=== PATIENT | male | born 1985 | race African-American/Black ===

== ENCOUNTER 2024-09-17 10:29 | Outpatient (CLI) | payer OTHER, SELFPAY ==
--- NOTE | ~2024-09-17 | US_ITS ---
EXAMINATION: US venous doppler LE RT DATE: 09/17/2024 11:14 INDICATION: Right lower limb pain and swelling TECHNIQUE: Grayscale ultrasound images without and with compression and Doppler ultrasound images of the right lower extremity veins were obtained. COMPARISON: None. FINDINGS: The visualized portions of right common femoral vein, profunda (deep) femoral vein, femoral vein, pop liteal vein, peroneal trunk, posterior tibial veins, peroneal veins, gastrocnemius vein and greater s aphenous vein outflow are patent. 4.0 x 1.1 x 2.4 cm anechoic Melara's cyst at the popliteal fossa whi ch rotation of the maintainer central office is also in the region of the patient's pain. IMPRESSION: 1. No deep venous thrombosis in the right lower limb. 2. Small to moderate-sized right popliteal fossa Melara's cyst at the site of patient's pain. Reviewed, dictated and finalized at location B. IMPRESSION: 1. No deep venous thrombosis in the right lower limb. 2. Small to moderate-sized right popliteal fossa Melara's cyst at the site of pa tient's pain.
--- NOTE | ~2024-09-17 | XR_ITS ---
EXAMINATION: XR femur RT min 2V, XR knee RT min 4V DATE: 09/17/2024 11:24 INDICATION: Right knee pain with weightbearing post injury TECHNIQUE: 1. AP, left and right oblique and lateral views of the right knee were obtained. 2. AP and lateral views of the right femur were obtained on overlapping proximal and distal images. COMPARISON: None. FINDINGS: Bone alignment is normal. No fracture. Right hip and knee joint spaces are normal. Suggestion of a sm all to moderate-sized right knee joint effusion. Soft tissues are otherwise unremarkable. IMPRESSION: 1. Likely small to moderate-sized right knee joint effusion. No osseous abnormality. Reviewed, dictated and finalized at location B. IMPRESSION: 1. Likely small to moderate-sized right knee joint effusion. No osseous abnorma lity.
--- OUTSIDE RECORDS SUMMARY | 2024-09-17 12:10 | XMS_ITS | Clinical Summary ---
Author Organization [facility] Address [address] [place] [id number] Care Team Providers Care Pad Tufter Name Role Phone None, Provider Primary Care Provider Unavaila ble Allergies No known active allergies Encounters Date Type Department Care Team Description 09/10/2024 8:17 AM CDT - 09/10/2024 8:26 AM CDT Emergency [facility] [place] [address] Emilia Tovar PA Knee Swelling Discharge Disposition: Home or Self Care (Routine Discharge) 09/10/2024 Travel from Last 3 Months Social History Tobacco Use Types Packs/Day Years Used Date Smoking Tobacco: Unknown Tobacco Cessation:Counseling Given: Not Answered Sex and Gender Information Value Date Recorded Sex Assigned at Male 09/10/2024 7:59 AM CDT Legal Sex Male 7:37 PM CDT Gender Identity Not on file Sexual Orientation Not on file Last Filed Vital Signs Vital Sign Reading Time Taken Comments Blood Pressure 125/77 09/10/2024 8:02 AM CDT Pulse 59 09/10/2024 8:02 AM CDT Temperature 36.3 C (97.4 F) 09/10/2024 8:02 AM CDT Respiratory Rate 20 09/10/2024 8:02 AM CDT Oxygen Saturation 97% 09/10/2024 8:02 AM CDT Inhaled Oxygen Concentration - - Weight 83.6 kg (184 lb 4.9 oz) 09/10/2024 8:02 A M CDT Height 177.8 cm (5' 10 ) 09/10/2024 8:02 AM CDT Body Mass Index 26.44 09/10/2024 8:02 AM CDT Plan of Treatment Health Maintenance Due Date Last Done Comments Annual Physical 1989 DTaP, Tdap and Td Vaccines (6 - Tdap) 04/03/2002 04/02/2002, 01/06/1991, 04/10/1988, Additional history exists Hepatitis C 2004 COVID-19 Vaccine (2023- season) 2024 Hepatitis B Vaccines Completed 05/13/2003, 02/20/2003, 04/02/2002 HPV Vaccines Aged Out No longer eligi ble based on patient's age to complete this topic Meningococcal B Vaccine Aged Out No l onger eligible based on patient's age to complete this topic Meningococcal Vaccine Aged Out No aravind daniel eligible based on patient's age to complete this topic Pneumococcal Vaccine: Pediatrics (0 to 5 Years) and At-Risk Patients (6 to 64 Years) Aged Out No longer eligible based on patient's age to complete this topic RSV Immunizations Under 20 Months Aged Out No longer eligible based on patient's age to complete this topic Insurance [facility] Care Teams Pad Tufter Relationship Specialty Start Date End Date None, Provider, PCP - General 01/11/22
--- OUTSIDE RECORDS SUMMARY | 2024-09-17 12:10 | XMS_ITS | Clinical Summary ---
Author Organization [address] Address [address] [place] [id number] Care Team Providers Care Utilization Review Nurse Name Role Phone Elif Nye MD Unavailable [phone] Gary Simon DO Primary Care Provider Allergies No known active allergies Medications No known medications Active Problems Problem Noted Date Diagnosed Date Routine physical examination 03/19/2024 Overview (03/19/2024): New: March 19, 2024 Resolved Problems Problem Noted Date Diagnosed Date Resolved Date Chronic right shoulder pain 03/19/2024 03/19/2024 Immunizations Immunization Administration Dates Next Due DTP 01/06/1991, 8,1986,1986,1 07/28/1985 Hep A, Pediatric 05/13/2003 Hep B, Adolescent or Pediatric 05/13/2003,2002,04/02/2002 HiB 07/24/1989 Influenza, Unspecified 03/19/2024(Deferr ed: Patient Refused),09/08/2023(Deferred: Patient Refused) MMR 01/23/1993 Measles 01/13/1993,09/05/1987 OPV 01/06/1991,04/10/1988,1986 ,1986 Rubella 07/12/1987 Td, adsorbed 04/02/2002 Surgical History Surgery Date Site/Laterality Comments APPENDECTOMY Medical History Medical History Date Comments Appendicitis Family History Medical History Relation Name Comments No Known Problems Father Diabetes Mother Relation Name Status Comments Father Alive Mother Alive Social History Tobacco Use Types Packs/Day Years Used Date Smoking Tobacco: Some Days Cigarettes 0.3 20.5 Started: 03/19/2004 [employer] Tobacco Cessation:Ready to Q uit: Not Asked; Counseling Given: Not Answered AUDIT-C Answer Date Recorded Q1: How often do you have a drink containing alcohol? Never 03/19/2024 Q2: How many drinks containi ng alcohol do you have on a typical day when you are drinking? Patient does not drink Q3: How often do you have si x or more drinks on one occasion? 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 Gender Identity Not on file Sexual Orientation Not on file Obstetrics History Last Filed Vital Signs Vital Sign Reading Time Taken Comments Blood Pressure 112/70 03/19/2024 4:04 PM CDT Pulse 70 03/19/2024 4:04 PM CDT Temperature 36.2 C (97.1 F) 03/19/2024 4:04 PM CDT Respiratory Rate 18 03/19/2024 4:04 PM CDT Oxygen Saturation 98% 03/19/2024 4:04 PM CDT Inhaled Oxygen Concentration - - Weight 76.2 kg (167 lb 14.4 oz) 03/19/2024 4:04 PM CDT Height 180.3 cm (5' 11 ) 03/19/2024 4:04 PM CDT Body Mass Index 23.42 03/19/2024 4:04 PM CDT Plan of Treatment Health Maintenance Due Date Last Done Comments Hepatitis C Screening 1986 Varicella Vaccines (1 of 2 - 13+ 2-dose series) 1999 DTaP/Tdap/Td Vaccine (6 - Tdap) 04/03/2002 04/02/2002, 01/06/1991, 04/10/1988, Additional history exists Pneumococcal vaccine <65 (1 of 2 - PCV) 2005 Influenza Vaccine (#1) 2024 Depression Screening 03/19/2025 03/19/2024, 11/16/19 21 Regular Well Visit/Exam 18-64 03/19/2025 03/19/2024, 11/15/2020 Hepatitis B Screening Completed 05/13/2003 , 02/20/2003, 04/02/2002 HPV Vaccines Aged Out No longer eligi ble based on patient's age to complete this topic Insurance [facility] CHO[facility] PLUS Care Teams Utilization Review Nurse Relationship Specialty Start Date End Date Gary Simon DO [address] [place] [id number] PCP - General Family Medicine 03/19/24 Elif Nye MD [address] [place], [place] [id number] Referring Physician Family Medicine 11/02/20
--- OUTSIDE RECORDS SUMMARY | 2024-09-17 12:10 | XMS_ITS | Referral Summary ---
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
== END 2024-09-17 10:30 | disposition home or self-care (01) ==
LOC: ANHIMG 10:39
PROVIDERS: PCP Emergency Medicine; Visit Provider Emergency Medicine
DX: M25.461 Effusion, right knee (principal); M71.21 Synovial cyst of popliteal space [Baker], right knee
CPT/HCPCS: 73552; 73564; 93971